=== PATIENT | male | born 1975 ===

== ENCOUNTER 2017-07-09 23:42 | Emergency (ER) | payer SELFPAY ==
[2017-07-09 23:42] VITALS: BMI 31.6
[2017-07-10 01:28] LABS: URINE BACTERIA RARE (<OCC); URINE BILIRUBIN NEGATIVE (NEGATIVE); URINE BLOOD NEGATIVE (NEGATIVE); URINE CLARITY SLIGHTY-CLOUDY (Clear); URINE COLOR YELLOW (YELLOW); URINE GLUCOSE (UA) NEG (Normal); URINE LEUKOCYTE ESTERASE NEG Leu/uL (Negative); URINE PROTEIN NEGATIVE (NEGATIVE); URINE UROBILINOGEN 0.2-1.0 mg/dL (0.2-1.0)
[2017-07-10 01:51] LABS: BASO # 0.1 K/uL (0.0-0.2); BASO % 1.4 % (0.0-2.0); EOS # 0.4 K/uL (0.0-0.7); EOS % 7.5 % (0.0-4.0); HEMOGLOBIN 14.5 g/dL (12.0-18.0); LYMPH # 1.9 K/uL (1.0-4.3); LYMPH % 40.4 % (20.0-40.0); MEAN CELL VOLUME 96.8 fl (80.0-94.0); MEAN CORPUSCULAR HEMOGLOBIN 32.1 pg (27.0-31.0); MEAN CORPUSCULAR HGB CONC 33.2 g/dL (33.0-37.0); MEAN PLATELET VOLUME 8.1 fl (7.2-11.7); MONO # 0.6 K/uL (0.0-0.8); MONO % 13.1 % (0.0-10.0); NEUT # 1.8 K/uL (1.8-7.0); NEUT % 37.6 % (50.0-75.0); NRBC % 0.1 % (0.0-0.0); RBC 4.5 Mil/uL (4.40-5.90); RED CELL DISTRIBUTION WIDTH 13.2 % (11.5-14.5); WHITE BLOOD COUNT 4.8 K/uL (4.8-10.8)
[2017-07-10 01:56] LABS: ALB/GLOB RATIO 1.2 (1.0-2.1); ALBUMIN 4.2 g/dL (3.5-5.0); ALT/SGPT 54 U/L (21-72); AST/SGOT 26 U/L (17-59); BLOOD UREA NITROGEN 13 mg/dl (9-20); CALCIUM 9.2 mg/dL (8.4-10.2); GFR AFRICAN-AMERICAN > 60; GFR NON-AFRICAN AMERICAN > 60
[2017-07-10 02:06] LABS: BARBITURATES, UR NEGATIVE (NEGATIVE); BENZODIAZEPINES, UR NEGATIVE (NEGATIVE); OPIATES, UR NEGATIVE (NEGATIVE); PHENCYCLIDINE, UR NEGATIVE (NEGATIVE)
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
--- NOTE | 2017-07-10 06:04 | ED PDOC ---
- Laboratory Results Result Diagrams: 07/10/17 01:47 07/10/17 01:47 - ECG O2 Sat by Pulse Oximetry: 99 Medical Decision Making Medical Decision Makin:00 Patient signed out to me by Queta Weiss pending [facility] screening. Reassess --07:00 Patient to be signed out to Dr. Chatman pending [facility] screening. Scribe Attestation: Documented by Gaetano Medina acting as a scribe for Yony Stevens MD. Provider Attestation: All medical record entries made by the Scribe were at my direction and personally dictated by me. I have reviewed the chart and agree that the record accurately reflects my personal performance of the history, physical exam, medical decision making, and the department course for this patient. I have also personally directed, reviewed, and agree with the discharge instructions and disposition. Disposition Discussed With : Omid Chatman Doctor Will See Patient In The: ED - Clinical Impression Clinical Impression: Psychosis - POA Present On Arrival: None - Disposition Disposition: Transfer of Care Disposition Time: 07:00 Condition: STABLE Forms: [employer] (Barbadian) Patient Signed Over To: Omid Chatman
--- NOTE | 2017-07-10 07:55 | ED PDOC ---
- Laboratory Results Result Diagrams: 07/10/17 01:47 07/10/17 01:47 - ECG O2 Sat by Pulse Oximetry: 99 Medical Decision Making Medical Decision Making: Patient was signed out to me by Dr. Stevens at 7:00AM, pending [facility] screening. Time: 17:00 Patient is endorsed to Dr. Tommie Dill III, pending [facility] bed assignment Scribe Attestation: Documented by Terrence Castillo, acting as a scribe for Omid Chatman MD Provider Scribe Attestation: All medical record entries made by the Scribe were at my direction and personally dictated by me. I have reviewed the chart and agree that the record accurately reflects my personal performance of the history, physical exam, medical decision making, and the department course for this patient. I have also personally directed, reviewed, and agree with the discharge instructions and disposition. Disposition - Clinical Impression Clinical Impression: Psychosis - POA Present On Arrival: None - Disposition Disposition: Transfer of Care Disposition Time: 17:00 Condition: STABLE Forms: [employer] (Albanian) Patient Signed Over To: Tommie Dill III (pending [facility] bed assignment)
[2017-07-10] MEDS ORDERED: Naproxen 500 MG TAB PO STA (07:56)
[2017-07-10] MEDS ORDERED: Naproxen 500 MG TAB PO ONE (08:43)
--- NOTE | 2017-07-10 09:05 | RAD ---
HISTORY: medical exam for [facility] COMPARISON: No prior. FINDINGS: LUNGS: No active pulmonary disease. PLEURA: No significant pleural effusion identified, no pneumothorax apparent. CARDIOVASCULAR: Normal. OSSEOUS STRUCTURES: No significant abnormalities. VISUALIZED UPPER ABDOMEN: Normal. OTHER FINDINGS: None. IMPRESSION: No active disease.
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
--- NOTE | 2017-07-10 17:14 | ED PDOC ---
- Laboratory Results Result Diagrams: 07/10/17 01:47 07/10/17 01:47 - ECG O2 Sat by Pulse Oximetry: 99 Pulse Ox Interpretation: Normal Medical Decision Making Medical Decision Making: patient received 5pm pending [facility] bed availability was prior medically cleared remains 1:1 Obs Psychiatry saw patient today. Disposition - Clinical Impression Clinical Impression: Psychosis - POA Present On Arrival: None - Disposition Disposition: Transfer of Care Disposition Time: 23:45 Condition: STABLE Forms: [employer] (Lao)
--- NOTE | 2017-07-10 17:38 | CARD ---
APPROVED REPORT EKG Measurement Heart [id number] <Conclusion> Normal sinus rhythm Normal ECG
--- NOTE | 2017-07-11 05:57 | ED PDOC ---
- Laboratory Results Result Diagrams: 07/10/17 01:47 07/10/17 01:47 - ECG O2 Sat by Pulse Oximetry: 99 Medical Decision Making Medical Decision Making: Time: 05:50 --Patient signed over to me by COLE Weiss pending bed availability at [facility] Scribe Attestation: Documented by Shukri Carrington acting as a scribe for Masoud Morris MD. Scribe Attestation: All medical record entries made by the Scribe were at my direction and personally dictated by me. I have reviewed the chart and agree that the record accurately reflects my personal performance of the history, physical exam, medical decision making, and the department course for this patient. I have also personally directed, reviewed, and agree with the discharge instructions and disposition. Disposition - Clinical Impression Clinical Impression: Psychosis - POA Present On Arrival: None - Disposition Disposition: Transfer of Care Disposition Time: 07:00 Condition: IMPROVED Forms: [facility] [employer] (Portuguese) Patient Signed Over To: Yony Stevens Handoff Comments: pending bed availability at [facility]
--- NOTE | 2017-07-11 07:04 | ED PDOC ---
- Laboratory Results Result Diagrams: 07/10/17 01:47 07/10/17 01:47 - ECG O2 Sat by Pulse Oximetry: 99 Medical Decision Making Medical Decision Makin -Patient transferred to pa by Dr. Morris, pending bed availability at [facility] 10:53 - Bed available at [facility] under Dr. Manning. Disposition - Clinical Impression Clinical Impression: Psychosis - POA Present On Arrival: None - Disposition Disposition: Other Institution Disposition Time: 10:50 Condition: STABLE Forms: [employer] (Hebrew)
[2017-07-11 08:08] VITALS: RESP 20
[2017-07-11 11:00] VITALS: BP 113/71; PULSE 97; TEMP 97.9
[2017-07-11 11:02] VITALS: O2SAT 99
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
== END 2017-07-11 12:39 | disposition short-term general hospital (02) ==
LOC: H.ER 23:42
DX: F23 Brief psychotic disorder (principal); E11.9 Type 2 diabetes mellitus without complications; F17.210 Nicotine dependence, cigarettes, uncomplicated; J45.909 Unspecified asthma, uncomplicated; Z00.8 Encounter for other general examination
CPT/HCPCS: 80053; 81003; 82948; 85025; 96372; 99284; G0480; J1630; J2060

== ENCOUNTER 2017-10-21 09:13 | Emergency (ER) | payer OTHER ==
[2017-10-21 09:13] VITALS: BMI 31.6
[2017-10-21] MEDS ORDERED: cefTRIAXone (Rocephin) 250 mg Inj IM ONE (09:55)
--- NOTE | 2017-10-21 09:59 | ED PDOC ---
HPI: Male Pain Time Seen by Provider: 10/21/17 09:48 Chief Complaint (Nursing): Abdominal Pain History Per: Patient Onset/Duration Of Symptoms: Days (5) Current Symptoms Are (Timing): Still Present Severity: Mild Pain Scale Rating Of: 1 Additional Complaint(s): Pt states he had unprotected oral sex 5 days ago. Now c/o abd pain lower. Denies penile discharge. Denies burning on urination. Requesting tx for STD and also requesting HepB vaccine. Decline HIV prophylaxis. Past Medical History Vital Signs: Last Vital Signs Temp 98 F 10/21/17 09:37 Pulse 130 H 10/21/17 09:37 Resp 18 10/21/17 09:37 BP 135/96 H 10/21/17 09:37 Pulse Ox 97 10/21/17 09:37 - Medical History PMH: Anxiety, Asthma, Diabetes, Gastritis Denies: Hepatitis, HIV, HTN, Seizures, Sexually Transmitted Disease - Surgical History Surgical History: Hernia Repair - Family History Family History: States: Unknown Family Hx - Immunization History Hx Tetanus Toxoid Vaccination: Yes Hx Influenza Vaccination: Yes Hx Pneumococcal Vaccination: Yes - Home Medications Home Medications: Ambulatory Orders Medication Instructions Recorded Naproxen [Naprosyn] 1 tab PO BID PRN #25 tab 06/22/17 Naproxen [Naprosyn] 500 mg PO BID PRN #30 tab 07/05/17 Naproxen [Naprosyn] 1 tab PO BID PRN #25 tab 09/08/17 - Allergies Allergies/Adverse Reactions: Allergies Allergy/AdvReac Type Severity Reaction Status Date / Time No Known Allergies Allergy Verified 10/21/17 09:37 Review of Systems Gastrointestinal: Positive for: Abdominal Pain Genitourinary Male: Negative for: Dysuria, Frequency, Penile Discharge Physical Exam - Physical Exam Appears: Positive for: Non-toxic, No Acute Distress Skin: Positive for: Normal Color, Warm, DRY Gastrointestinal/Abdominal: Positive for: Bowel Sounds, Soft. Negative for: Tenderness Male Genital Exam: Positive for: normal genitalia. Negative for: lesions, testicular tenderness (R), testicular tenderness (L), urethral discharge - ECG O2 Sat by Pulse Oximetry: 97 Disposition - Clinical Impression Clinical Impression: Urethritis - Patient ED Disposition Is Patient to be Admitted: No Counseled Patient/Family Regarding: Studies Performed, Diagnosis, Need For Followup, Rx Given - Disposition Referrals: [facility] [Outside] Disposition: Routine/Home Disposition Time: 10:00 Condition: FAIR Instructions: Urethritis (DC)
[2017-10-21] MEDS ORDERED: Hepatitis B Immune Globulin 1mL Inj IM ONE (10:30)
[2017-10-21] MEDS ORDERED: Hepatitis B Vaccine PED 10 mcg/0.5 mL Inj IM ONE (10:30)
[2017-10-21] MEDS ORDERED: cefTRIAXone (Rocephin) 250 mg Inj ONE (10:57)
[2017-10-21 12:51] VITALS: BP 128/78; PULSE 78; RESP 19; TEMP 97; O2SAT 98
[2017-10-22 07:55] LABS: HEPATITIS A IGM NEGATIVE (NEGATIVE); HEPATITIS B CORE AB NEGATIVE (NEGATIVE)
[2017-10-22 08:07] LABS: HEPATITIS C ANTIBODY NEGATIVE (NEGATIVE)
[2017-10-22 09:03] LABS: HEPATITIS B SURFACE AG Negative (NEGATIVE)
== END 2017-10-21 12:51 | disposition home or self-care (01) ==
LOC: H.ER 09:13
DX: N34.1 Nonspecific urethritis (principal)
CPT/HCPCS: 80074; 87390; 87491; 87591; 90371; 90744; 96372; 99282; J0696

== ENCOUNTER 2018-09-16 14:09 | Emergency (ER) | payer OTHER ==
[2018-09-16 14:09] VITALS: BMI 34.9
[2018-09-16 14:25] VITALS: BP 126/84; PULSE 88; RESP 18; TEMP 97.1; O2SAT 99
[2018-09-16] MEDS ORDERED: cefTRIAXone (Rocephin) 250 mg Inj IM ONE (15:00)
[2018-09-16] MEDS ORDERED: cefTRIAXone (Rocephin) 250 mg Inj ONE (15:12)
[2018-09-16] MEDS ORDERED: Sterile Water 10 ML IV ONE (15:13)
[2018-09-16 15:55] LABS: URINE BILIRUBIN NEGATIVE (NEGATIVE); URINE BLOOD NEGATIVE (NEGATIVE); URINE CLARITY CLEAR (Clear); URINE COLOR YELLOW (YELLOW); URINE GLUCOSE (UA) NEG (NEGATIVE); URINE LEUKOCYTE ESTERASE NEG Leu/uL (Negative); URINE PROTEIN NEGATIVE (NEGATIVE); URINE UROBILINOGEN 0.2-1.0 mg/dL (0.2-1.0)
--- NOTE | 2018-09-16 16:18 | ED PDOC ---
HPI: Male Pain Time Seen by Provider: 09/16/18 14:28 Chief Complaint (Nursing): Abdominal Pain Additional Complaint(s): Pt presents to the ED concerned about STD exposure after being with a partner that has a reputation for being overly social with others. Pt denies knowledge of any specific STD, but does aacknowledge dysuria in the last two to three days. His contact was approximately one week ago Past Medical History Reviewed: Historical Data, Nursing Documentation, Vital Signs Vital Signs: Last Vital Signs Temp 97.1 F L 09/16/18 14:23 Pulse 88 09/16/18 14:23 Resp 18 09/16/18 14:23 BP 126/84 09/16/18 14:23 Pulse Ox 99 09/16/18 14:23 - Medical History PMH: Anxiety, Asthma, Diabetes, Gastritis Denies: Hepatitis, HIV, HTN, Seizures, Sexually Transmitted Disease - Surgical History Surgical History: Hernia Repair - Family History Family History: States: Unknown Family Hx - Immunization History Hx Tetanus Toxoid Vaccination: No Hx Influenza Vaccination: No Hx Pneumococcal Vaccination: No - Home Medications Home Medications: Ambulatory Orders Medication Instructions Recorded Albuterol Sulfate [Proair Hfa] 1 puff IH Q6 PRN #1 inh 04/29/18 - Allergies Allergies/Adverse Reactions: Allergies Allergy/AdvReac Type Severity Reaction Status Date / Time No Known Allergies Allergy Verified 07/01/18 20:15 Review of Systems ROS Statement: Except As Marked, All Systems Reviewed And Found Negative Genitourinary Male: Positive for: Dysuria. Negative for: Penile Discharge, Rash, Penile Pain Physical Exam - Reviewed Nursing Documentation Reviewed: Yes Vital Signs Reviewed: Yes - Physical Exam Appears: Positive for: Well, Non-toxic, No Acute Distress. Negative for: Uncomfortable Head Exam: Positive for: ATRAUMATIC, NORMAL INSPECTION Skin: Positive for: Normal Color, Warm, Dry. Negative for: Diaphoresis, Pallor, Rash Eye Exam: Positive for: Normal appearance. Negative for: Nystagmus, Periorbital swelling, Periorbital tenderness ENT: Positive for: Normal ENT Inspection Neck: Positive for: Normal, Painless ROM, Supple. Negative for: Decreased ROM Cardiovascular/Chest: Positive for: Regular Rate, Rhythm Respiratory: Positive for: Normal Breath Sounds - Laboratory Results Lab Results: Urine Color Yellow (YELLOW) 09/16/18 15:48 Urine Clarity Clear (Clear) 09/16/18 15:48 Urine pH 7.0 (5.0-8.0) 09/16/18 15:48 Ur Specific Guild 1.013 (1.003-1.030) 09/16/18 15:48 Urine Protein Negative mg/dL (NEGATIVE) 09/16/18 15:48 Urine Glucose (UA) Neg mg/dL (NEGATIVE) 09/16/18 15:48 Urine Ketones Negative mg/dL (NEGATIVE) 09/16/18 15:48 Urine Blood Negative (NEGATIVE) 09/16/18 15:48 Urine Nitrate Negative (NEGATIVE) 09/16/18 15:48 Urine Bilirubin Negative (NEGATIVE) 09/16/18 15:48 Urine Urobilinogen 0.2-1.0 mg/dL (0.2-1.0) 09/16/18 15:48 Ur Leukocyte Esterase Neg Radha/uL (Negative) 09/16/18 15:48 Urine RBC (Auto) 1 /hpf (0-3) 09/16/18 15:48 Urine Microscopic WBC < 1 /hpf (0-5) 09/16/18 15:48 - ECG O2 Sat by Pulse Oximetry: 99 Medical Decision Making Medical Decision Making: I: exposure to STD P: GC swap RPR Treate in ED with ceftriaxone nad azithro as a propholactic Pt advised that positive results for RPR will be provided to him by phone Disposition - Clinical Impression Clinical Impression: Exposure to STD - Patient ED Disposition Is Patient to be Admitted: No Doctor Will See Patient In The: Office Counseled Patient/Family Regarding: Diagnosis, Need For Followup, Rx Given - Disposition Referrals: [facility] [Outside] Disposition: Routine/Home Disposition Time: 16:19 Condition: STABLE
== END 2018-09-16 16:30 | disposition home or self-care (01) ==
LOC: H.ER 14:09
DX: J45.909 Unspecified asthma, uncomplicated (principal); E11.9 Type 2 diabetes mellitus without complications; Z20.2 Contact with and (suspected) exposure to infections with a predominantly sexual mode of transmission
CPT/HCPCS: 81003; 86592; 87491; 87591; 96372; 99282; J0696